=== PATIENT | female | born 1995 | race American Indian/Alaskan Native ===

== ENCOUNTER 2017-01-27 11:53 | Emergency (ER) | payer SELFPAY ==
[2017-01-27 12:11] VITALS: BP 117/87
[2017-01-27 13:16] LABS: Basophils % (Auto) 0.6 % (0.0-1.8); Eosinophils % (Auto) 1.4 % (0.0-4.3); Hematocrit 37.7 % (30.3-42.9); Hemoglobin 12.4 gm/dl (10.1-14.3); Mean Corpuscular HGB Conc 33 % (30-34); Mean Corpuscular Volume 77 fl (79-97); Platelet Count 273 K/mm3 (140-440); Red Blood Count 4.92 M/mm3 (3.65-5.03); White Blood Count 5.4 K/mm3 (4.5-11.0)
[2017-01-27 13:30] LABS: Mean Corpuscular Hemoglobin 25 pg (28-32)
[2017-01-27 13:32] LABS: Alanine Aminotransferase 9 units/L (7-56); Albumin 4.1 g/dL (3.9-5); Alkaline Phosphatase 70 units/L (35-129); Anion Gap 17 mmol/L; BUN/Creatinine Ratio 13; Blood Urea Nitrogen 8 mg/dL (7-17); Calcium 9.7 mg/dL (8.4-10.2); Carbon Dioxide 26 mmol/L (22-30); Chloride 102.5 mmol/L (98-107); Glucose 85 mg/dL (65-100); Lipase 20 units/L (13-60); Potassium 4.3 mmol/L (3.6-5.0); Sodium 141 mmol/L (137-145); Total Protein 8.3 g/dL (6.3-8.2)
[2017-01-27 14:02] LABS: Bilirubin,Urine NEG (Negative); Blood,Urine MOD (Negative); Ketones,Urine NEG (Negative); Leukocyte Esterase,Urine TR (Negative); Mucus,Urine 1+ /HPF; Nitrite,Urine NEG (Negative); Protein,Urine <15 mg/dL mg/dL (Negative)
--- NOTE | 2017-01-27 14:31 | Emergency Department Report ---
ED Abdominal Pain HPI - General Chief Complaint: Abdominal Pain Stated Complaint: ABDOMINAL PAIN Time Seen by Provider: 01/27/17 14:00 Source: patient, family Mode of arrival: Ambulatory Limitations: No Limitations - History of Present Illness Initial Comments: Patient here reports that she has abdominal pain 1 month pointing around her and periumbilical area. She said the pain is crampy in its Iqbal to 10. She cannot remember the last and that she had a bowel movement. Denies any urinary burning frequency or urgency. Last menstrual cycle was 01/22/2017. Pain is intermittent. Denies any nausea or vomiting. Denies any back pain. Denies any fever or chills. MD Complaint: abdominal pain Onset/Timin -: month(s) Location: periumbilical Radiation: none Migration to: no migration Severity: severe Severity scale (0 -10): 9 Quality: cramping, fullness Consistency: intermittent Improves With: nothing Worsens With: nothing Associated Symptoms: constipation. denies: nausea, vomiting, diarrhea, fever, chills, dysuria, hematemesis, hematochezia, melena, hematuria, anorexia, syncope - Related Data LMP Date: 01/22/17 Previous Rx's Medication Instructions Recorded Last Taken Type Naproxen 500 mg PO BID PRN #12 tablet 01/27/17 Unknown Rx Nitrofurantoin Woods/M-Cryst 100 mg PO Q12HR #14 capsule 01/27/17 Unknown Rx [Macrobid CAP] Polyethylene Glycol 3350 [Miralax 17 gm PO QDAY #2 packet 01/27/17 Unknown Rx 3350] Promethazine [Phenergan TAB] 25 mg PO Q6HR PRN #12 tab 01/27/17 Unknown Rx Allergies Allergy/AdvReac Type Severity Reaction Status Date / Time No Known Allergies Allergy Verified 01/27/17 12:07 ED Review of Systems ROS: Stated complaint: ABDOMINAL PAIN Other details as noted in HPI Comment: All other systems reviewed and negative Constitutional: no symptoms reported Respiratory: no symptoms reported Cardiovascular: denies: chest pain, palpitations, dyspnea on exertion, edema, syncope, paroxysmal nocturnal dyspnea Gastrointestinal: abdominal pain. denies: nausea, vomiting, diarrhea, constipation, hematemesis, melena, hematochezia Genitourinary: denies: urgency, dysuria, frequency, hematuria, discharge, abnormal menses, dyspareunia Skin: denies: rash Neurological: denies: headache, weakness, numbness, paresthesias, confusion, abnormal gait, vertigo ED Past Medical Hx - Past Medical History Previous Medical History?: No - Surgical History Past Surgical History?: No - Family History Family history: hypertension - Social History Smoking Status: Never Smoker Substance Use Type: None Other Social History: Single - Medications Home Medications: Home Medications Medication Instructions Recorded Confirmed Last Taken Type Naproxen 500 mg PO BID PRN #12 tablet 01/27/17 Unknown Rx Nitrofurantoin Woods/M-Cryst 100 mg PO Q12HR #14 capsule 01/27/17 Unknown Rx [Macrobid CAP] Polyethylene Glycol 3350 [Miralax 17 gm PO QDAY #2 packet 01/27/17 Unknown Rx 3350] Promethazine [Phenergan TAB] 25 mg PO Q6HR PRN #12 tab 01/27/17 Unknown Rx ED Physical Exam - General Limitations: No Limitations General appearance: alert, in no apparent distress - Head Head exam: Present: atraumatic, normocephalic, normal inspection - Eye Eye exam: Present: normal appearance, PERRL, EOMI. Absent: periorbital swelling , periorbital tenderness Pupils: Present: normal accommodation - ENT ENT exam: Present: normal exam, normal orophraynx, mucous membranes moist, TM's normal bilaterally, normal external ear exam - Neck Neck exam: Present: normal inspection, full ROM, other (No s-spine tenderness). Absent: tenderness, meningismus, lymphadenopathy, thyromegaly - Respiratory Respiratory exam: Present: normal lung sounds bilaterally. Absent: respiratory distress, wheezes, rales, rhonchi, stridor, chest wall tenderness, accessory muscle use, decreased breath sounds, prolonged expiratory - Cardiovascular Cardiovascular Exam: Present: regular rate, normal rhythm, normal heart sounds. Absent: systolic murmur, diastolic murmur - GI/Abdominal GI/Abdominal exam: Present: soft, distended, tenderness (periumbilical area), normal bowel sounds. Absent: guarding, rebound, rigid, organomegaly, mass, bruit, pulsatile mass, hernia - Extremities Exam Extremities exam: Present: normal inspection, full ROM, normal capillary refill , other (no clubbing, cyanosis or edema. +2 pulses to extremities. No neurovascular compromise). Absent: tenderness, pedal edema, joint swelling, calf tenderness - Back Exam Back exam: Present: normal inspection, full ROM. Absent: tenderness, CVA tenderness (R), CVA tenderness (L), muscle spasm, paraspinal tenderness, vertebral tenderness, rash noted - Neurological Exam Neurological exam: Present: alert, oriented X3, normal gait, reflexes normal. Absent: motor sensory deficit - Psychiatric Psychiatric exam: Present: normal affect, normal mood - Skin Skin exam: Present: warm, dry, intact, normal color. Absent: rash - Other Other exam information: Breast examination. Incidental findings for right breast nodule and radiology recommended mammographically. Physical findings for small nodule outer lateral breast. Nontender to palpate. No erythema. Normal areola and nipple bilateral. Skin to both breasts is normal. ED Course Vital Signs 01/27/17 12:07 Temperature 98.1 F Pulse Rate 68 Respiratory 16 Rate Blood Pressure 117/87 O2 Sat by Pulse 95 Oximetry - Reevaluation(s) Reevaluation #1: 01/27/17 14:00-abdominal exam same and patient has no new complaints. Reevaluation #2: 01/27/17 16:42 Abdominal exam remains the same and patient has no new complaints. Bilateral breast exam done with findings for small nodule to right outer lateral breast, otherwise both breasts or normal except normal examination ED Medical Decision Making - Lab Data Result diagrams: 01/27/17 12:27 01/27/17 12:27 Lab Results 01/27/17 01/27/17 01/27/17 Range/Units 12:27 12:27 12:27 WBC 5.4 (4.5-11.0) K/mm3 RBC 4.92 (3.65-5.03) M/mm3 Hgb 12.4 (10.1-14.3) gm/dl Hct 37.7 (30.3-42.9) % MCV 77 L (79-97) fl MCH 25 L (28-32) pg MCHC 33 (30-34) % RDW 14.0 (13.2-15.2) % Plt Count 273 (140-440) K/mm3 Lymph % (Auto) 44.6 H (13.4-35.0) % Woods % (Auto) 10.6 H (0.0-7.3) % Eos % (Auto) 1.4 (0.0-4.3) % Baso % (Auto) 0.6 (0.0-1.8) % Lymph # 2.4 (1.2-5.4) K/mm3 Woods # 0.6 (0.0-0.8) K/mm3 Eos # 0.1 (0.0-0.4) K/mm3 Baso # 0.0 (0.0-0.1) K/mm3 Seg Neutrophils % 42.8 (40.0-70.0) % Seg Neutrophils # 2.3 (1.8-7.7) K/mm3 Sodium 141 (137-145) mmol/L Potassium 4.3 (3.6-5.0) mmol/L Chloride 102.5 (98-107) mmol/L Carbon Dioxide 26 (22-30) mmol/L Anion Gap 17 mmol/L BUN 8 (7-17) mg/dL Creatinine 0.6 L (0.7-1.2) mg/dL Estimated GFR > 60 ml/min BUN/Creatinine Ratio 13 % Glucose 85 (65-100) mg/dL Calcium 9.7 (8.4-10.2) mg/dL Total Bilirubin 0.20 (0.1-1.2) mg/dL AST 16 (5-40) units/L ALT 9 (7-56) units/L Alkaline Phosphatase 70 (35-129) units/L Total Protein 8.3 H (6.3-8.2) g/dL Albumin 4.1 (3.9-5) g/dL Albumin/Globulin Ratio 1.0 % Lipase 20 (13-60) units/L HCG, Qual Negative (Negative) Urine Color (Yellow) Urine Turbidity (Clear) Urine pH (5.0-7.0) Ur Specific [place] (1.003-1.030) Urine Protein (Negative) mg/dL Urine Glucose (UA) (Negative) mg/dL Urine Ketones (Negative) mg/dL Urine Blood (Negative) Urine Nitrite (Negative) Urine Bilirubin (Negative) Urine Urobilinogen (<2.0) mg/dL Ur Leukocyte Esterase (Negative) Urine WBC (Auto) (0.0-6.0) /HPF Urine RBC (Auto) (0.0-6.0) /HPF U Epithel Cells (Auto) (0-13.0) /HPF Urine Mucus /HPF Urine HCG, Qual (Negative) 01/27/17 Range/Units 13:17 WBC (4.5-11.0) K/mm3 RBC (3.65-5.03) M/mm3 Hgb (10.1-14.3) gm/dl Hct (30.3-42.9) % MCV (79-97) fl MCH (28-32) pg MCHC (30-34) % RDW (13.2-15.2) % Plt Count (140-440) K/mm3 Lymph % (Auto) (13.4-35.0) % Woods % (Auto) (0.0-7.3) % Eos % (Auto) (0.0-4.3) % Baso % (Auto) (0.0-1.8) % Lymph # (1.2-5.4) K/mm3 Woods # (0.0-0.8) K/mm3 Eos # (0.0-0.4) K/mm3 Baso # (0.0-0.1) K/mm3 Seg Neutrophils % (40.0-70.0) % Seg Neutrophils # (1.8-7.7) K/mm3 Sodium (137-145) mmol/L Potassium (3.6-5.0) mmol/L Chloride (98-107) mmol/L Carbon Dioxide (22-30) mmol/L Anion Gap mmol/L BUN (7-17) mg/dL Creatinine (0.7-1.2) mg/dL Estimated GFR ml/min BUN/Creatinine Ratio % Glucose (65-100) mg/dL Calcium (8.4-10.2) mg/dL Total Bilirubin (0.1-1.2) mg/dL AST (5-40) units/L ALT (7-56) units/L Alkaline Phosphatase (35-129) units/L Total Protein (6.3-8.2) g/dL Albumin (3.9-5) g/dL Albumin/Globulin Ratio % Lipase (13-60) units/L HCG, Qual (Negative) Urine Color Yellow (Yellow) Urine Turbidity Clear (Clear) Urine pH 5.0 (5.0-7.0) Ur Specific [place] 1.026 (1.003-1.030) Urine Protein <15 mg/dl (Negative) mg/dL Urine Glucose (UA) Neg (Negative) mg/dL Urine Ketones Neg (Negative) mg/dL Urine Blood Mod (Negative) Urine Nitrite Neg (Negative) Urine Bilirubin Neg (Negative) Urine Urobilinogen 2.0 (<2.0) mg/dL Ur Leukocyte Esterase Tr (Negative) Urine WBC (Auto) 2.0 (0.0-6.0) /HPF Urine RBC (Auto) 2.0 (0.0-6.0) /HPF U Epithel Cells (Auto) 3.0 (0-13.0) /HPF Urine Mucus 1+ /HPF Urine HCG, Qual Negative (Negative) Urine culture pending - Radiology Data Radiology results: report reviewed CT scan of the abdomen and pelvis reveal patient with fluid distended stomach and duodenum. Nodule to right breast an radiologist as recommended in outpatient mammogram. Lung bases are normal. No peripheral pericardial effusion. Suspicion of nodule right breast. Normal liver, spleen, pancreas and gallbladder. Normal adrenals. No calculi or mass of the kidney parenchyma. Normal bladder. Normal adrenals. Normal appendix. Gaseous colon with moderate volume stool in colon. No free intraperitoneal fluid or air. No evidence of sdenopathy - Medical Decision Making Collaborating with Dr. Leos on patient presentation, clinical findings and lab and CT scan findings and he is okay with patient being discharged home in antibiotic and to follow-up outpatient for mammogram, primary care and compensation coordinator. ED course: Patient here presented with abdominal pain to her periumbilical area 1 month that comes and goes. She cannot remember when she had her last bowel movement and denies any urinary symptoms. Urinalysis reveal patient with trace leukocyte Estrace and moderate blood. test negative. Patient had CT scan of the abdomen and pelvis without contrast to check for kidney stones. This was negative for kidney stones but incidental finding for right breast nodule which patient will be recommended to go to [facility] as she does not have a primary care physician or insurance to have them refer her for outpatient mammogram. Also CT scan of the abdomen and pelvis show the patient has fluid distended stomach and duodenum. she has moderate amount of gas and stool in her colon. Patient abdominal exam remained tender to periumbilical area but she was not in any distress throughout ED stay. She did not require any pain medication. Patient was given Rocephin 1 g IM for urinary tract infection out any adverse reaction. CBC and CMP stable without any significant increase or decrease in values. He is referred to radiologist section and lab section for details on CT scan and also on labs. Breast exam done and small nodule felt to right outer lateral breasts which is nontender to palpate. Skin to both breasts is normal to include areal nipple. No nipple discharge noted. Patient denies any history of breast cancer personally or in her family. I discussed the patient her results of labs, urine and CT scan findings. And I told her that it is very important that she follow-up at [facility]. I discussed with her that this is a nodule in her right breast and she needs a screening mammogram to rule out breast cancer. I also discussed with her that her CT scan showed that she had some fluid distention in her stomach and duodenum and this could be because she has moderate amount of stool and gas in her colon so she will need to take laxative to be able to have a bowel movement. I also discuss urinary tract infection treatment plan. Family member and patient voice understanding of need to follow up at [facility] and they will refer her out to GI specialist if she still continue to have stomach problems and also to outpatient mammogram. Patient discharged home in stable condition with prescription for Macrobid, naproxen and relax for constipation. Critical care attestation.: If time is entered above; I have spent that time in minutes in the direct care of this critically ill patient, excluding procedure time. ED Disposition Clinical Impression: Periumbilical abdominal pain, Disorder of stomach and duodenum, Acute cystitis with hematuria, Breast nodule Constipation Qualifiers: Constipation type: other constipation type Qualified Code(s): K59.09 - Other constipation Disposition: - TO HOME OR SELFCARE Is pt being admited?: No Does the pt Need Aspirin: No Condition: Stable Instructions: Abdominal Pain (ED), Breast Self-exam (ED), Mammogram (ED), Breast Mass (ED), Constipation (ED), High Fiber Diet (ED), Urinary Tract Infection in Women (ED) Additional Instructions: Please follow up at [facility] as you do not have a primary care doctor.Youcan call and Monday to schedule appointment as Monday is a holiday so they might be closed. Please take antibiotic as prescribed for urinary tract infection CT scan shows that you have moderate amount of stool in your colon so you will need to take MiraLAX as prescribed. If you do not take laxative as prescribed your constipation will worsen and it could lead to blockage a few bowel and subsequent . CT scan of the abdomen and pelvis is also showing that he has some distention in the stomach and her small intestine and this could be from having large amount of gas in the stomach but he will need to follow up with outpatient compensation coordinator for follow-up visit. CT scan is also showing that you have a nodule in your right breast and he will need to follow-up for outpatient mammogram. Please take CD of CAT scan with you to your visit and let them know that you were in the hospital and this was recommended by radiologist. Although you are not at high risk for breast cancer , any abnormality seen in on diagnostics tests needs follow-up visits with specialists. If you do not follow-up for outpatient mammogram and this is cancer became progress and V2 . Follow discharge instruction on high fiber diet to prevent constipation Increasing fluid intake Please return to the emergency room if you develop increased distention of his stomach, increased pain, nausea and vomiting, fever or chills. Prescriptions: Naproxen 500 mg PO BID PRN #12 tablet PRN Reason: Pain Nitrofurantoin Woods/M-Cryst [Macrobid CAP] 100 mg PO Q12HR #14 capsule Polyethylene Glycol 3350 [Miralax 3350] 17 gm PO QDAY #2 packet Promethazine [Phenergan TAB] 25 mg PO Q6HR PRN #12 tab PRN Reason: Nausea Referrals: [facility]IMARY CAREM[facility] [Primary Care Provider] - 01/31/17 [facility] [Outside] - 01/31/17 [facility] [Provider Group] - 3-5 Days Forms: Accompanied Note, Work/School Release Form(ED)
[2017-01-27] MEDS ORDERED: XYLOCAINE 1% MPF 5 mL INFILTRATI ONE (14:46)
[2017-01-27] MEDS ORDERED: ROCEPHIN IM STA (14:46)
--- NOTE | 2017-01-27 15:57 | Cat Scan Report ---
CT scan of abdomen and pelvis without IV contrast: History: Abdominal pain with hematuria. A Findings: Normal lung bases. No pleural pericardial effusion. Suspicion of nodule right breast. Normal liver spleen pancreas and gallbladder. Normal adrenals. No calculi or mass at the kidney parenchyma. Normal bladder. No free intraperitoneal fluid or air. No evidence of adenopathy. Normal appendix. No evidence of diverticulitis. Gaseous colon with moderate volume stool in colon. Fluid distended stomach and duodenum. Impression: Fluid distended stomach and duodenum. Nodule right breast mammography examination is advised.
== END 2017-01-27 17:35 | disposition home or self-care (01) ==
LOC: ED 11:53
DX: N30.01 Acute cystitis with hematuria (principal); N63.0 Unspecified lump in unspecified breast; K59.00 Constipation, unspecified; K31.9 Disease of stomach and duodenum, unspecified
CPT/HCPCS: 36415; 74176; 80053; 81001; 81025; 83690; 84703; 85025; 87086; 96372; 99284; J0696